=== PATIENT | male | born 2000 | race African-American/Black ===

== ENCOUNTER 2019-12-13 15:47 | Emergency (ER) | payer SELFPAY ==
[~2019-12-13] VITALS: Ht 170.1 cm; Wt 72.6 kg
[2019-12-13 17:23] LABS: BILIRUBIN NEGATIVE (NEGATIVE); BLOOD TRACE-INTACT (NEGATIVE); CLARITY CLOUDY (CLEAR); COLOR STRAW (YELLOW); GLUCOSE NEGATIVE (NEGATIVE); KETONE NEGATIVE (NEGATIVE)
[2019-12-13 17:24] LABS: LEUKO ESTERASE 3+ (NEGATIVE); NITRITE NEGATIVE (NEGATIVE); PH 6.5 (5.0-9.0); UROBILINOGEN 0.2 E.U./dl (0.2-1.0); WBC TNTC wbc/hpf (0-5)
[2019-12-13 17:25] LABS: BACTERIA 2+; RBC 16-20 rbc/hpf (0-2)
[2019-12-18 14:51] LABS: GONOCOCCUS BY NAA Positive (Negative)
== END 2019-12-13 17:33 | disposition home or self-care (01) ==
LOC: ED 15:47
PROVIDERS: Physician Assistant
DX: R36.9 Urethral discharge, unspecified (principal); R10.9 Unspecified abdominal pain; F17.200 Nicotine dependence, unspecified, uncomplicated